=== PATIENT | male | born 1975 | race African-American/Black ===

== ENCOUNTER 2017-06-13 01:12 | Emergency (ER) | payer MEDICAID ==
[~2017-06-13] VITALS: Ht 180.3 cm; Wt 84.0 kg
[2017-06-13 04:52] VITALS: BP 120/84
== END 2017-06-13 05:55 | disposition home or self-care (01) ==
LOC: ER 01:12
DX: B34.9 Viral infection, unspecified (principal); J45.909 Unspecified asthma, uncomplicated; F17.200 Nicotine dependence, unspecified, uncomplicated; F12.10 Cannabis abuse, uncomplicated
CPT/HCPCS: 99283

== ENCOUNTER 2017-08-11 18:18 | Emergency (ER) | payer SELFPAY ==
[~2017-08-11] VITALS: Ht 175.3 cm; Wt 82.0 kg
[2017-08-11] MEDS ORDERED: KETOROLAC 30MG/ML VIAL IM ONE (22:45)
[2017-08-11] MEDS ORDERED: AMOXICILLIN/POTASSIUM CLAVULANATE 875/125MG TAB PO ONE (23:00)
[2017-08-11 23:14] VITALS: BP 124/79
== END 2017-08-11 23:24 | disposition home or self-care (01) ==
LOC: ER 19:02
DX: L03.115 Cellulitis of right lower limb (principal); S90.861A Insect bite (nonvenomous), right foot, initial encounter; W57.XXXA Bitten or stung by nonvenomous insect and other nonvenomous arthropods, initial encounter; J45.909 Unspecified asthma, uncomplicated; F17.200 Nicotine dependence, unspecified, uncomplicated
CPT/HCPCS: 96372; 99283; J1885

== ENCOUNTER 2017-08-14 18:16 | Emergency (ER) | payer MEDICAID ==
[~2017-08-14] VITALS: Ht 175.3 cm; Wt 81.8 kg
[2017-08-15 01:20] VITALS: BP 135/81
== END 2017-08-15 02:02 | disposition home or self-care (01) ==
LOC: ER 18:19
DX: Z48.00 Encounter for change or removal of nonsurgical wound dressing (principal); F17.200 Nicotine dependence, unspecified, uncomplicated; F12.10 Cannabis abuse, uncomplicated
CPT/HCPCS: 99283

== ENCOUNTER 2019-06-08 07:01 | Emergency (ER) | payer MEDICAID, OTHER ==
[~2019-06-08] VITALS: Ht 175.3 cm; Wt 79.0 kg
[2019-06-08] MEDS ORDERED: IBUPROFEN 600MG TABLET PO STA (08:28)
[2019-06-08 08:34] LABS: CLARITY URINE CLEAR (CLEAR); COLOR URINE YELLOW (YELLOW); KETONES URINE NEGATIVE (NEGATIVE); LEUKOCYTE ESTERASE URINE NEGATIVE (NEGATIVE); NITRITE URINE NEGATIVE (NEGATIVE); OCCULT BLOOD URINE NEGATIVE (NEGATIVE); PH URINE 5.5 (4.5-8.0); PROTEIN URINE NEGATIVE (NEGATIVE); SPECIFIC GRAVITY URINE 1.022 (1.005-1.030); UROBILINOGEN URINE 0.2 E.U./dL (0.2-1.0)
[2019-06-08 08:40] VITALS: BP 141/87
== END 2019-06-08 10:21 | disposition home or self-care (01) ==
LOC: ER 07:01
DX: M54.5 Low back pain (principal); M60.9 Myositis, unspecified; F12.10 Cannabis abuse, uncomplicated; R07.9 Chest pain, unspecified
CPT/HCPCS: 71045; 81003; 93005; 99284

== ENCOUNTER 2019-06-10 21:59 | Emergency (ER) | payer OTHER ==
[~2019-06-10] VITALS: Ht 175.3 cm; Wt 78.6 kg
[2019-06-11 00:20] VITALS: BP 112/69
[2019-06-11] MEDS ORDERED: ACETAMINOPHEN WITH CODEINE 300/30MG TABLET PO STA (00:20)
[2019-06-11] MEDS ORDERED: MAGNESIUM/ALUMINUM HYDROXIDE/SIMETHICONE 30ML UDC PO ONE (00:30)
[2019-06-11] MEDS ORDERED: DICYCLOMINE 10 MG/5 ML ORAL SYR PO ONE (00:30)
[2019-06-11 00:58] LABS: BASOPHILS % 1.3 % (0.0-2.0); EOSINOPHILS % 0.8 % (0.0-5.0); HEMATOCRIT. 44.3 % (42.0-52.0); HEMOGLOBIN. 15.1 g/dL (14.0-18.0); LYMPHOCYTES % 55.8 % (20.0-50.0); MEAN CORPUSCULAR HEMOGLOBIN 31.4 pg (28.0-32.0); MEAN CORPUSCULAR VOLUME 92.2 fL (80.0-94.0); MONOCYTES % 10.2 % (2.0-8.0); NEUTROPHILS % 31.9 % (40.0-76.0); PLATELET 186 x1000/uL (130-400); RED BLOOD CELL COUNT 4.81 mill/uL (4.7-6.1); RED CELL DISTRIBUTION WIDTH 13.7 % (11.6-14.6)
[2019-06-11 01:10] LABS: CHLORIDE 107 mEq/L (98-107)
[2019-06-11 02:39] LABS: CLARITY URINE CLEAR (CLEAR); COLOR URINE YELLOW (YELLOW); KETONES URINE TRACE (NEGATIVE); LEUKOCYTE ESTERASE URINE NEGATIVE (NEGATIVE); NITRITE URINE NEGATIVE (NEGATIVE); OCCULT BLOOD URINE NEGATIVE (NEGATIVE); PH URINE 5.5 (4.5-8.0); PROTEIN URINE NEGATIVE (NEGATIVE); SPECIFIC GRAVITY URINE 1.009 (1.005-1.030); UROBILINOGEN URINE 0.2 E.U./dL (0.2-1.0)
== END 2019-06-11 04:00 | disposition home or self-care (01) ==
LOC: ER 21:59
DX: R07.9 Chest pain, unspecified (principal); F17.200 Nicotine dependence, unspecified, uncomplicated
CPT/HCPCS: 36415; 71045; 80053; 81003; 84484; 85025; 93005; 99284

== ENCOUNTER 2019-06-18 02:22 | Emergency (ER) | payer OTHER ==
[~2019-06-18] VITALS: Ht 175.3 cm; Wt 78.0 kg
[2019-06-18 02:50] VITALS: BP 133/85
[2019-06-18 04:31] LABS: BASOPHILS % 1.2 % (0.0-2.0); EOSINOPHILS % 0.8 % (0.0-5.0); HEMOGLOBIN. 14.6 g/dL (14.0-18.0); LYMPHOCYTES % 33.4 % (20.0-50.0); MEAN CORPUSCULAR HEMOGLOBIN 31.3 pg (28.0-32.0); MEAN CORPUSCULAR VOLUME 92.4 fL (80.0-94.0); MEAN PLATELET VOLUME 8.4 fl (7.4-10.4); MONOCYTES % 11.4 % (2.0-8.0); NEUTROPHILS % 53.2 % (40.0-76.0); PLATELET 213 x1000/uL (130-400); RED BLOOD CELL COUNT 4.66 mill/uL (4.7-6.1); RED CELL DISTRIBUTION WIDTH 13.4 % (11.6-14.6)
[2019-06-18 04:41] LABS: CHLORIDE 107 mEq/L (98-107)
[2019-06-18 04:45] LABS: ETHANOL BLOOD < 10 mg/dL
[2019-06-18 05:05] LABS: OPIATES URINE SCREEN NEGATIVE (NEGATIVE)
[2019-06-18 05:06] LABS: *AMPHETAMINES SCREEN URINE NEGATIVE (NEGATIVE); *BARBITURATES SCREEN URINE NEGATIVE (NEGATIVE); *BENZODIAZEPINES SCREEN URINE NEGATIVE (NEGATIVE); *COCAINE SCREEN URINE NEGATIVE (NEGATIVE); CANNABINOID URINE SCREEN PRESUMTIVE POSITIVE (NEGATIVE); PHENCYCLIDINE URINE SCREEN NEGATIVE (NEGATIVE)
[2019-06-18 05:07] LABS: METHADONE URINE SCREEN NEGATIVE (NEGATIVE)
== END 2019-06-18 05:34 | disposition home or self-care (01) ==
LOC: ER 02:22
DX: R00.0 Tachycardia, unspecified (principal); K59.00 Constipation, unspecified; F17.200 Nicotine dependence, unspecified, uncomplicated
CPT/HCPCS: 36415; 71045; 80053; 80305; 80320; 85025; 93005; 99284; Z7610; G0480